=== PATIENT | female | born 1985 | race Caucasian/White ===

== ENCOUNTER 2021-09-11 08:37 | Emergency (ER) | payer OTHER, SELFPAY ==
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
[2021-09-11 08:51] VITALS: BP 111/73; BP 138/78; PULSE 81; PULSE 84; RESP 16; TEMP 36.9; O2SAT 100; BMI 22.2
[2021-09-11] MEDS: Acetaminophen 325 MG TABLET 975 MG PO (10:03)
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
[2021-09-11 10:53] LABS: UPreg QC Valid YES; Urine Pregnancy NEGATIVE (NEGATIVE)
[2021-09-11 11:29] VITALS: BP 103/61; PULSE 66; RESP 16; O2SAT 100
== END 2021-09-11 13:50 | disposition home or self-care (01) ==
PROVIDERS: Physician Assistant; Emergency Provider Emergency Medicine; PCP Family Medicine
DX: Z04.1 Encounter for examination and observation following transport accident (principal); M25.511 Pain in right shoulder
CPT/HCPCS: 70450; 72125; 73030; 73060; 81025; 99283; 99284